=== PATIENT | male | born 1985 | race Caucasian/White ===

== ENCOUNTER 2019-11-18 20:55 | Emergency (ER) | payer OTHER, SELFPAY ==
[2019-11-18 21:03] VITALS: PULSE 73; RESP 16; O2SAT 100; BMI 26.4
--- NOTE | 2019-11-18 21:19 | W.ED.GENADLT ---
HPI - General Adult General: Chief complaint: Fever Stated complaint: fever Time Seen by Provider: 11/18/19 21:10 History of Present Illness: HPI narrative: History of fever chills and cough since Friday evening has not gone to work. Will need a note for work.Took Tylenol about 1630 night patient said he tested positive for flu Friday Lester Galicia just found that out at 2214. Said he just needs relief or fever only meant taking Tylenol. complaint: Fever and chills Onset (ago): day(s) Associated symptoms: Reports cough and fevers/chills; Deny chest pain, dyspnea, headache(s), nausea, rash or vomiting Review of Systems Const: Reports: fever, chills and body aches Eyes: Denies: change in vision or blurry vision ENMT: Denies: throat pain or nasal congestion Card: Denies: chest pain or shortness of breath on exertion Resp: Reports: non-productive cough; Denies: shortness of breath or productive cough GI: Denies: abdominal pain, nausea or vomiting : Denies: difficulty urinating Musc: Denies: extremity pain Skin/Breast: Denies: rash Neuro: Denies: headache Psych: Denies: anxiety or depression Robert/Lymph: Denies: easy bruising PFSH ED PFSH: Social History Smoking and tobacco status: current every day smoker Physical Exam Const: COMMON NORMALS: no apparent distress, average body habitus and oriented x3 HENMT: COMMON NORMALS: normocephalic HEAD & SCALP: normal to inspection and normocephalic FACE & SINUS: normal facial exam Eye: COMMON NORMALS: conjunctivae normal GENERAL EYE: normal appearance of both eyes CONJUNCTIVA: Yes conjunctivae normal Neck/C-Spine: COMMON NORMALS: no JVD Chest: COMMONS NORMALS: inspection of chest normal Resp: COMMON NORMALS: normal respiratory effort and clear to auscultation bilaterally AUSCULTATION: clear to auscultation bilaterally Cardio: COMMON NORMALS: no JVD, regular rate and regular rhythm RATE: regular rate RHYTHM: regular rhythm GI: COMMON NORMALS: normal to inspection, nondistended, normoactive bowel sounds Extremity: COMMON NORMALS: normal to inspection and full ROM Neuro: COMMON NORMALS: oriented x3 Course Vital Signs: Vital signs: Vital Signs Pulse Rate 73 11/18/19 21:03 Respiratory Rate 16 11/18/19 21:03 Pulse Oximetry 100 11/18/19 21:03 MDM - General Adult Lab Data: Labs: Lab Results 11/18/19 Range/Units 21:10 Influenza Type A A g Negative (Negative) POC Influenza B Ag Negative (Negative) Discharge Plan Discharge Patient Disposition: Home, Self-Care Condition: Stable Prescriptions: No Action Tylenol 325 mg Tablet 325 mg PO QID PRN (Reason: Pain) RF: 0 pantoprazole 40 mg Tablet,Delayed Release (Dr/Ec) 40 mg PO DAILY RF: 0 ibuprofen 200 mg Tablet 200 mg PO Q6H PRN (Reason: Pain) RF: 0 Discharge Orders: Discharge Order (Routine); Ordered 11/18/19 Ordered By: Chandler Yang Referrals: [facility] [Other] Discharge Diet: Advance as tolerated Discharge Activity: Increase activity as tolerated Patient Instructions: Viral Syndrome (ED) Activity Restrictions/Additional Instructions: Follow-up with medical provider as directed. Take ibuprofen and or tylenol Return to the ER or your medical provider if condition worsens. Please read and understand discharge instructions. If any questions ask please. 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
--- NOTE | 2019-11-18 21:20 | XR_ITS ---
WS: [id number] Portable AP upright chest, 11/18/2019 Clinical Data: cough Comparison: PA and lateral chest, 07/20/2019. Findings: No nodules, masses or effusions are seen. The heart is normal. The pulmonary vascularity is not increased. No pneumonia or pneumothorax is seen. XR/XR chest 1V portable [id number] Impression: Negative chest.
[2019-11-18] MEDS: ibuprofen 600 mg Tablet PO (21:35)
[2019-11-18 21:46] LABS: Influenza A by IFA Negative (Negative); Influenza B by IFA Negative (Negative)
[2019-11-18 22:14] VITALS: BP 113/70; PULSE 73; RESP 18; TEMP 37.4; O2SAT 98
== END 2019-11-18 22:14 | disposition home or self-care (01) ==
PROVIDERS: Emergency Provider Nurse Practitioner Family
DX: R50.9 Fever, unspecified (principal); R05 Cough; F17.200 Nicotine dependence, unspecified, uncomplicated
CPT/HCPCS: 71045; 87804; 99281; 99283

== ENCOUNTER 2021-05-29 12:55 | Outpatient (CLI) | payer OTHER, SELFPAY ==
--- NOTE | 2021-05-29 13:17 | XR_ITS ---
WS: [id number] LEFT KNEE: 4 VIEW(S) TECHNIQUE: AP, oblique(s) and lateral. HISTORY: KNEE PAIN, LEFT COMPARISON: None available. No fracture or dislocation. Mild fragmentation of the tibial tubercle is probably asymptomatic. No ov erlying soft tissue edema. No joint space narrowing or osteophytes. No joint effusion. No soft tissue abnormality. XR/XR knee LT 4V [id number] IMPRESSION: Normal LEFT knee.
== END 2021-05-29 12:56 | disposition home or self-care (01) ==
PROVIDERS: Visit Provider Nurse Practitioner Family
DX: M25.562 Pain in left knee (principal)
CPT/HCPCS: 73564

== ENCOUNTER 2021-06-04 09:15 | Outpatient (CLI) | payer OTHER, SELFPAY ==
--- NOTE | 2021-06-04 09:21 | MR_ITS ---
WS: [id number] MRI LEFT KNEE NONCONTRAST TECHNIQUE: Axial PD, coronal PD fat sat, coronal PD, sagittal PD, and sagittal PD fat-sat images obta ined. CLINICAL INFORMATION: KNEE PAIN, LEFT COMPARISON: None. FINDINGS: Distal quadriceps and patella tendons are intact. Normal ACL and PCL. Normal bone marrow signal in th e femoral condyles and tibial plateau. Medial and lateral meniscus are normal in appearance. No acute appearing meniscal tears. 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 Normal patella. No subchondral edema. Normal popliteal fossa. Normal medial and lateral collateral li gaments. No other significant findings. MR/MR knee LT wo con* [id number] IMPRESSION: 1. Normal ACL and PCL. 2. No acute appearing meniscal tears. 3. Normal patella. Normal patella cartilage. 4. Medial and lateral collateral ligaments are normal in appearance. 5. No other significant findings. Outbridge grading:
== END 2021-06-04 09:16 | disposition home or self-care (01) ==
PROVIDERS: Visit Provider Nurse Practitioner Family
DX: M25.562 Pain in left knee (principal)
CPT/HCPCS: 73721

== ENCOUNTER → 2022-09-09 16:45 | Outpatient (BNVA) | payer OTHER, SELFPAY | PROVIDERS: PCP Family Medicine; Visit Provider Family Medicine | DX: G44.86 Cervicogenic headache (principal); F17.200 Nicotine dependence, unspecified, uncomplicated; Z68.31 Body mass index [BMI] 31.0-31.9, adult; Z71.6 Tobacco abuse counseling | CPT/HCPCS: 80053; 80061; 85025 ==

== ENCOUNTER → 2024-10-11 11:13 | Outpatient (BNVA) | payer OTHER, SELFPAY | PROVIDERS: PCP Family Medicine; Visit Provider Emergency Medicine | DX: R07.9 Chest pain, unspecified (principal); R06.02 Shortness of breath; R07.89 Other chest pain | CPT/HCPCS: 71046; 93005 ==